=== PATIENT | male | born 1940 | race Caucasian/White ===

== ENCOUNTER 2016-10-09 13:30 | Observation (INO) | payer OTHER, MEDICARE ==
[2016-10-09] MEDS ORDERED: NS 1,000 ML IV ONE (13:45)
--- NOTE | 2016-10-09 13:45 | CPEKG ---
Heart Rate: 74 RR Interval: 811 P-R Interval: 204 QRSD Interval: 92 QT Interval: 388 QTC Interval: 431 P Orlando: 66 QRS Orlando: -22 T Wave Orlando: 50 EKG Severity - OTHERWISE NORMAL ECG - EKG Impression: SINUS RHYTHM EKG Impression: BORDERLINE LEFT AXIS DEVIATION Electronically Signed By: Robin Prado 09-Oct-2016 13:58:28
--- NOTE | 2016-10-09 13:50 | EDPHY ---
General Narrative: CHIEF COMPLAINT: Chest Pain HISTORY OF PRESENT ILLNESS: Patient complains of a left-sided chest discomfort or pressure. This has been present for greater than a week. This is primarily present night. Occasionally after exertion. Minimally painful to him. Occasionally radiates on the right side of the chest after bench pressing. No fever or chills. No diaphoresis. No nausea or vomiting. He does feel that he has been tiring more quickly lately. No shortness of breath. Does not have any lower extremity edema or pain, but he does have some erythematous changes of the shins over the past few weeks. No history of venous thrombolic event. No history of coronary artery disease or [place]. Pain did worsen this morning at the gym while exercising. The tingling and numbness of the left arm that he explained is chronic, at baseline, and he does not feel it has anything to do with the chest discomfort he describes. No other associated complaints or modifying factors. PRIOR CARDIAC WORKUP: Heart catheterization remotely REVIEW OF SYSTEMS: Ten systems reviewed and are negative unless otherwise noted in the HPI EXAMINATION: General Appearance: Alert, no distress Head: normocephalic, atraumatic Eyes: Pupils equal and round, no conjunctival pallor or injection. EOMs intact. ENT, Mouth: Mucous membranes moist. Uvula midline. No erythema or edema. Neck: Normal inspection, supple, non-tender Respiratory: Lungs are clear to auscultation. No wheezing, rhonchi or crackles. Cardiovascular: Regular rate and rhythm. No murmur. Pulses intact distally symmetrically. Gastrointestinal: Abdomen is soft and nontender Neurological: A&O, nonfocal, normal gait. Strength is symmetric Skin: Warm and dry. Petechial changes to the left anterior lopez. Also small area petechiae on the right anterior lopez. Extremities: Nontender, no pedal edema. No erythema. No discrepancy of circumference of the cast. No pain with passive dorsiflexion. No evidence of DVT. Psychiatric: Mood and affect normal DIFFERENTIAL DIAGNOSES: Including but not limited to in no particular order: Acute Chest Pain, ACS, Stable Angina, Pneumonia, PE, duodenitis, gastritis, esophagitis, GERD MDM: 1:50 p.m. Chest pain of greater than 12 hours duration. The pain did worsen this morning while exercising. The pain is not been constant and does wax and wane. No definite worsening with exertion every time, but does have some worsening with exertion this morning. Vital signs are stable. He is in no acute distress. 3:05 p.m. Laboratory studies are negative. Chest x-ray as read by me shows no acute findings. EKG is unremarkable with no ischemia. Vital signs remained stable. I have revision with the patient to find out specifically when the chest pain worsen, and this was just before 12:00 p.m. today. Given this scenario, I do feel he is best suited with acute coronary scenario rule out by observation admission. I discussed the case with Dr. Salinas, and she will admit the patient observation. Patient is comfortable that plan. At his request, I have also paged the cardiology office he was scheduled to see on Friday to discuss the case. 4:[address] Salinas that she had ordered a D-dimer due to the possibility of PE. This has just returned as negative. Also notified by Dr. Serrano that the DVT study of the left lower extremity does not reveal an acute DVT. There is note of a mixed attenuation fluid collection that is lateral to the hip on the left. I have notified Dr. Salinas of this. She will follow up on this EKG: Interpreted by Dr. Prado Normal sinus rhythm without acute ischemia. SUPERVISION: This patient was independently evaluated without direct examination by the attending physician. Case was discussed with attending physician. Case discussed with Dr. Prado - History Smoking Status: Never smoked - Objective Vital Signs: Initial Vital Signs Temperature (C) 97.5 F 10/09/16 13:33 Heart Rate 84 10/09/16 13:33 Respiratory Rate 18 10/09/16 13:33 Blood Pressure 140/74 H 10/09/16 13:33 O2 Sat (%) 95 10/09/16 13:33 O2 Delivery Mode Room Air Allergies/Adverse Reactions: No Known Allergies Allergy (Unverified 10/09/16 15:19) Home Medications: Medication Instructions Recorded Ascorbic Acid [Vitamin C 500 mg 2,000 - 4,000 mg PO DAILY 01/16/12 (OTC)] Atorvastatin Calcium [Lipitor 20 20 mg PO DAILY 01/16/12 mg (RX)] Calcium Carb W/Vit D [Calcium Carb 500 mg PO DAILY 01/16/12 W/Vit D 500 mg (OTC)] Cholecalciferol Vit D3 [Vitamin D3 2,000 units PO DAILY 01/16/12 1000 units (OTC)] Cyanocobalamin [Vitamin B12 1000 1,000 mcg PO DAILY 01/16/12 MCG (OTC)] Herbals/Supplements -Info Only 1 each PO DAILY 01/16/12 Multivitamins [Multivitamin (OTC)] 1 each PO DAILY 01/16/12 Niacin [Niacin 500 mg (OTC)] 500 mg PO DAILY 01/16/12 Aspirin [Aspirin 325 mg (*)] 168 mg PO HS 10/09/16 Glucosamine/Chondroitin 1 each PO DAILY 10/09/16 [Glucosamine/Chondroitin (*)] Laboratory Results: Laboratory Results 10/09/16 13:50 10/09/16 13:50 10/09/16 10/09/16 10/09/16 13:50 13:50 13:50 WBC 6.60 10^3/uL 10^3/uL (3.80-9.50) RBC 5.05 10^6/uL 10^6/uL (4.40-6.38) Hgb 15.4 g/dL g/dL (13.7-17.5) Hct 46.9 % % (40.0-51.0) MCV 92.9 fL fL (81.5-99.8) MCH 30.5 pg pg (27.9-34.1) MCHC 32.8 g/dL g/dL (32.4-36.7) RDW 12.9 % % (11.5-15.2) Plt Count 197 10^3/uL 10^3/uL (150-400) MPV 10.7 fL fL (8.7-11.7) Neut % (Auto) 71.8 % % (39.3-74.2) Lymph % (Auto) 13.8 % L % (15.0-45.0) [place] % (Auto) 8.8 % % (4.5-13.0) Eos % (Auto) 5.0 % % (0.6-7.6) Baso % (Auto) 0.3 % % (0.3-1.7) Nucleat RBC Rel Count 0.0 % % (0.0-0.2) Absolute Neuts (auto) 4.74 10^3/uL 10^3/uL (1.70-6.50) Absolute Lymphs (auto) 0.91 10^3/uL L 10^3/uL (1.00-3.00) Absolute Monos (auto) 0.58 10^3/uL 10^3/uL (0.30-0.80) Absolute Eos (auto) 0.33 10^3/uL 10^3/uL (0.03-0.40) Absolute Basos (auto) 0.02 10^3/uL 10^3/uL (0.02-0.10) Absolute Nucleated RBC 0.00 10^3/uL 10^3/uL (0-0.01) Immature Gran % 0.3 % % (0.0-1.1) Immature Gran # 0.02 10^3/uL 10^3/uL (0.00-0.10) PT 12.7 SEC SEC (12.0-15.0) INR 0.96 (0.83-1.16) APTT 28.4 SEC SEC (23.0-38.0) D-Dimer 0.44 ug/mLFEU ug/mLFEU (0.00-0.50) Sodium 143 mEq/L mEq/L (134-144) Potassium 4.2 mEq/L mEq/L (3.5-5.2) Chloride 107 mEq/L mEq/L (97-110) Carbon Dioxide 25 mEq/l mEq/l (22-31) Anion Gap 11 mEq/L mEq/L (8-16) BUN 22 mg/dL mg/dL (7-23) Creatinine 1.1 mg/dL mg/dL (0.7-1.3) Estimated GFR > 60 Glucose 84 mg/dL mg/dL (70-100) Calcium 9.8 mg/dL mg/dL (8.5-10.4) Iron 107.0 mcg/dL mcg/dL (49-199) TIBC 225 ug/dL L ug/dL (260-490) Iron Saturation 48 % % (20-55) Total Bilirubin 1.6 mg/dL H mg/dL (0.1-1.4) Conjugated Bilirubin 0.4 mg/dL mg/dL (0.0-0.5) Unconjugated Bilirubin 1.2 mg/dL H mg/dL (0.0-1.1) AST 38 IU/L IU/L (17-59) ALT 50 IU/L IU/L (21-72) Alkaline Phosphatase 80 IU/L IU/L (38-126) Troponin I < 0.012 ng/mL ng/mL (0-0.034) NT-Pro-B Natriuret Pep 60 pg/mL pg/mL (0-125) Total Protein 7.5 g/dL g/dL (6.3-8.2) Albumin 4.4 g/dL g/dL (3.5-5.0) Lipase 114.0 IU/L IU/L (23-300) TSH 0.850 uIU/mL uIU/mL (0.465-4.680) Medications Given: Discontinued Medications Sodium Chloride (Ns) 1,000 mls @ 0 mls/hr IV ONCE ONE PRN Reason: Wide Open Stop: 10/09/16 13:46 Last Admin: 10/09/16 14:06 Dose: 1,000 mls Departure - Departure Disposition: [facility] Inpatient Acute Clinical Impression: Acute chest pain Condition: Good Referrals: NONE *PRIMARY CARE P,. [Primary Care Provider] - As per Instructions
[2016-10-09 13:57] LABS: % IMMATURE GRANULYOCYTES 0.3 % (0.0-1.1); ABSOLUTE IMMATURE GRANULOCYTES 0.02 10^3/uL (0.00-0.10); ADD DIFF? NO; ADD MORPH? NO; ADD SCAN? NO; ATYPICAL LYMPHOCYTE FLAG 0 (0-99); FRAGMENT RBC FLAG 0 (0-99); HEMATOCRIT 46.9 % (40.0-51.0); HEMOGLOBIN 15.4 g/dL (13.7-17.5); LEFT SHIFT FLG 0 (0-99); LIPEMIA HEMOLYSIS FLAG 80 (0-99); MEAN CELL HEMOGLOBIN 30.5 pg (27.9-34.1); MEAN CELL HEMOGLOBIN CONCENTR. 32.8 g/dL (32.4-36.7); MEAN CELL VOLUME 92.9 fL (81.5-99.8); MEAN PLATELET VOLUME 10.7 fL (8.7-11.7); PLATELET CLUMPS FLAG 0 (0-99); PLATELET COUNT 197 10^3/uL (150-400); RED BLOOD CELL COUNT 5.05 10^6/uL (4.40-6.38); RED CELL DISTRIBUTION WIDTH 12.9 % (11.5-15.2)
[2016-10-09 14:11] LABS: ALANINE AMINOTRANSFERASE 50 IU/L (21-72); ALBUMIN 4.4 g/dL (3.5-5.0); ALKALINE PHOSPHATASE 80 IU/L (38-126); ANION GAP 11 mEq/L (8-16); ASPARTATE AMINOTRANSFERASE 38 IU/L (17-59); BILIRUBIN,TOTAL 1.6 mg/dL (0.1-1.4); BILIRUBIN-CONJUGATED 0.4 mg/dL (0.0-0.5); BILIRUBIN-UNCONJUGATED 1.2 mg/dL (0.0-1.1); CALCIUM 9.8 mg/dL (8.5-10.4); CARBON DIOXIDE 25 mEq/l (22-31); CHLORIDE 107 mEq/L (97-110); CREATININE 1.1 mg/dL (0.7-1.3); GLOMERULAR FILTRATION RATE > 60; GLUCOSE 84 mg/dL (70-100); POTASSIUM 4.2 mEq/L (3.5-5.2); SODIUM 143 mEq/L (134-144); TOTAL PROTEIN 7.5 g/dL (6.3-8.2)
[2016-10-09 14:13] LABS: INR 0.96 (0.83-1.16); PROTIME(PATIENT) 12.7 SEC (12.0-15.0)
[2016-10-09 14:14] LABS: APTT 28.4 SEC (23.0-38.0)
[2016-10-09 14:20] LABS: % SATURATION 48 % (20-55); TOTAL IRON BINDING CAPACITY 225 ug/dL (260-490)
[2016-10-09 14:23] LABS: TROPONIN I < 0.012 ng/mL (0-0.034)
--- NOTE | 2016-10-09 16:48 | GHP ---
[f rep st] HISTORY AND PHYSICAL DATE OF ADMISSION: 10/09/2016 CHIEF COMPLAINT: Chest discomfort, dyspnea. HISTORY OF PRESENT ILLNESS: The patient is a 75-year-old male with a history of hyperlipidemia who has presented with approximately 1 month of left-sided chest discomfort and achiness. It is substernal that radiates to his left shoulder. It occurs mainly at night, and often it wakes him. He has noticed that his left arm falls asleep with this discomfort. Of more concern to him is a dyspnea and decreased exercise tolerance over the past 3 months. He has noticed more fatigue. He is very active, going to the gym 2-3 times a week. 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 However, over the last few months , he has been more winded and fatigues more easily when doing these activities. He also reports taking more antacids recently. He does have acid reflux that is different from this chest discomfort. Over the last few days, he has also noted swelling in the left leg and no pain with a mild rash. Denies recent travel. No fevers, chills, or sweats. No cough. No sore throat. No nausea, vomiting, or diarrhea. REVIEW OF SYSTEMS: I completed a 10-point review of systems, negative except as noted in HPI. PAST MEDICAL HISTORY: Hyperlipidemia. Patient has recently been evaluated by his primary care doctor and was actually supposed to see Dr. Salazar at [facility] on Friday. PAST SURGICAL HISTORY: Left rotator cuff in February, KATY FAMILY HISTORY: Father at age 61 undergoing a CABG. SOCIAL HISTORY: Lives with his . 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 Lives in [place]. Denies to tobacco or illicit. He drinks alcohol, a glass of wine 2- 3 times a week. Exercises 2-3 times a week at gym, plays pickleball, works with his horses 4-5 times a week. MEDICATIONS: Aspirin 325 mg daily, glucosamine, vitamin B12, vitamin D3, calcium carbonate, vitamin D, Lipitor 20, vitamin C, niacin 500 mg daily, multivitamin, herbal supplements. ALLERGIES: No known drug allergies. PHYSICAL EXAM: VITAL SIGNS: Temperature 36.4, blood pressure 140/70, heart rate 80, respiration 18, 95% on room air. GENERAL: No acute distress. Sitting up in bed, smiling. HEENT: PERRLA. EOMI. Oropharynx clear. CARDIOVASCULAR: Regular rate and rhythm. No murmurs, gallops, or rubs. LUNGS : Clear to auscultation bilaterally. ABDOMEN: Soft, nontender, nondistended. Positive bowel sounds. GENITOURINARY: No suprapubic tenderness. MUSCULOSKELETAL: Left lower extremity more swollen than left with small petechiae. NEUROLOGIC: 2 through 12 intact. PSYCHIATRIC: Alert and oriented x3. LABORATORY DATA: WBC 6, hemoglobin 15, hematocrit 46, platelets 197. Coags within normal. Sodium 143, potassium 4.2, chloride 107, creatinine 1.1, glucose 84, calcium 9.8, total bilirubin 1.6. AST 38, ALT 50, iron 107, TIBC is 225. Unconjugated bilirubin is 1.2. Troponin less than 0.012. BNP is 60. Lipase 114. TSH 0.8. EKG was personally reviewed by me, normal sinus rhythm, ST flattening in aVL. Chest x-ray personally reviewed by me, normal expansion, no evidence of effusion or opacity. ASSESSMENT AND PLAN: 1. Atypical chest pain: Differential includes acute coronary syndrome versus pulmonary embolism versus infection. Initial troponin and EKG were negative for ischemia. Will repeat both these. Negative D-dimer. No evidence of infection. Patient is afebrile. Chest x-ray is clear. Will monitor in the EACU on telemetry. Provide p.r.n. morphine if needed. Exercise treadmill in morning. 2. Left lower extremity swelling: negative US for DVT. 3. Hyperlipidemia: Continue home medications. 4. Petechia: LLE. Unclear cause, small-vessel vasculitis? Unusual given one leg. Normal platelets. Check ESR, CRP, C3/C4, Hep serologies 5. Left hip effusion: seen on LE U/S. May be 2/2 to hardware, discussed with Dr. Pal. Will further eval with MRI 4. Diet: Cardiac. 5. Deep venous thrombosis prophylaxis: Low risk, ambulatory. DISPOSITION: Patient warrants observation admission given acute chest pain warranting serial troponin, EKG, and telemetry monitoring. /[id number]/MODL MTDD
[2016-10-09] MEDS ORDERED: MIDAZOLAM 2 MG/2 ML VIAL IVP PRN (16:59)
[2016-10-09 19:17] LABS: HEMATOCRIT 46.4 % (40.0-51.0)
[2016-10-09] MEDS ORDERED: ASPIRIN 325 MG TAB PO SCH (21:00)
[2016-10-10 06:06] LABS: ANION GAP 8 mEq/L (8-16); CALCIUM 9.3 mg/dL (8.5-10.4); CARBON DIOXIDE 23 mEq/l (22-31); CHLORIDE 108 mEq/L (97-110); CHOLESTEROL 159 mg/dL (140-220); CHOLESTEROL/HDL RATIO 3.24 RATIO (1.00-4.97); GLOMERULAR FILTRATION RATE > 60; GLUCOSE 86 mg/dL (70-100); HIGH DENSITY LIPOPROTEIN 49 mg/dL (40-65); LDL/HDL RATIO 1.76 RATIO (1.00-3.64); LOW DENSITY LIPOPROTEIN 86 mg/dL (80-100); NON-HIGH DENSITY LIPOPROTEIN 110 mg/dL (90-129); POTASSIUM 4.8 mEq/L (3.5-5.2); SODIUM 139 mEq/L (134-144); TRIGLYCERIDE 121 mg/dL (40-150); VERY LOW DENSITY LIPOPROTEINS 24 mg/dL (8-25)
--- NOTE | 2016-10-10 08:12 | CPEKG ---
Heart Rate: 65 RR Interval: 923 P-R Interval: 208 QRSD Interval: 94 QT Interval: 404 QTC Interval: 421 P Rock: 65 QRS Rock: -21 T Wave Rock: 38 EKG Severity - OTHERWISE NORMAL ECG - EKG Impression: SINUS RHYTHM EKG Impression: BORDERLINE LEFT AXIS DEVIATION Electronically Signed By: Caleb Robles 10-Oct-2016 09:05:20
[2016-10-10] MEDS ORDERED: ATORVASTATIN CALCIUM 20 MG TAB PO SCH (09:00)
[2016-10-10] MEDS ORDERED: GLUCOSAMINE/CHONDROITIN CAP PO SCH (09:00)
[2016-10-10] MEDS ORDERED: MULTIVITAMINS 1 EACH TAB PO SCH (09:00)
[2016-10-10] MEDS ORDERED: CYANO/VITAMIN B12 1000 MCG TAB PO SCH (09:00)
[2016-10-10] MEDS ORDERED: ASCORBIC ACID 500 MG TAB PO SCH (09:00)
[2016-10-10] MEDS ORDERED: NIACIN 500 MG TAB PO SCH (09:00)
[2016-10-10] MEDS ORDERED: CHOLECALCIFEROL VIT D3 2,000 UNITS TAB/CAP PO SCH (09:00)
[2016-10-10 09:18] VITALS: RESP 14
--- NOTE | 2016-10-10 11:35 | CPR ---
[f rep st] NONINVASIVE CARDIAC PROCEDURE REPORT PROCEDURE: Exercise treadmill test. INDICATION FOR PROCEDURE: Ongoing dyspnea on exertion, abnormal electrocardiogram, evaluation for cardiac ischemia. PRE: After obtaining informed consent, patient was placed on electrocardiogram. Initial EKG shows sinus rhythm with a first-degree AV block , no significant ST or T-wave abnormalities suggesting of an ischemia. Patient denies of any chest pain, shortness of breath, or symptoms suggesting of ischemia. Initial blood pressure of 130/82, saturation 94% on room air. STRESS: Patient was placed on exercise treadmill, following standard Surya protocol, the following findings: 1. Patient exercised 8 minutes and 30 seconds 2. 9.8 METs 3. The patient obtained a heart rate of 131 BPM which was 89% of MPHR. 4. The patient had no chest pain or symptoms suggesting of ischemia during exercise. 5. The patient had no significant ST changes suggesting of ischemia throughout testing. 6. BP response, patient's resting BP was 130/82, peak 198/80. 7. The patient was noted to have occasional premature ventricular contraction during stress, no other arrhythmias noted during any of the 3 stages. 8. Patient maintained SpO2 greater than 90%. 9. Test was stopped due to maximum effort. 10. Strickland treadmill score of 8, placing patient at low cardiovascular risk. RECOVERY: Patient recovered for 5 minutes. Within that time, his heart rate returned back to baseline at 70 beats per minute. Final blood pressure 142/80. Patient remained symptom free. IMPRESSION: A 75-year-old male being evaluated for cardiac ischemia for ongoing shortness of breath. No significant EKG changes at peak exercise suggesting of ischemia. Strickland treadmill score of 8. Stress test negative for ischemia. Patient at low cardiovascular risk. Results and findings called to [facility]. /[id number]/MODL MTDD
[2016-10-10] MEDS ORDERED: GADOBUTROL 10 ML VIAL IVP ONE (12:17)
[2016-10-10] MEDS ORDERED: MIDAZOLAM 2 MG/2 ML VIAL ONE ×2 (12:37→13:23)
[2016-10-10 14:41] VITALS: BP 128/86; PULSE 62; TEMP 97.5; O2SAT 97
--- NOTE | 2016-10-10 15:13 | PDDCSUM ---
Discharge Summary Discharge Summary: DISCHARGE SUMMARY FOLLOW-UP ITEMS: Outpatient orthopedic consultation, outpatient rheumatology consultation, outpatient echocardiogram DATE OF ADMISSION: 10/09/2016 DATE OF DISCHARGE: 10/10/2016 DISCHARGE DIAGNOSES: 1. Dyspnea on exertion 2. Left hip effusion 3. 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 Dyspnea on exertion. Unclear etiology, ruled out for acute coronary syndrome with negative troponin x2, no ischemic changes on EKG, no obstructive coronary disease noted on exercise stress testing, negative D-dimer, no abnormalities on chest x-ray. Patient also underwent a TSH screening which was normal and his inflammatory markers were also fairly unremarkable. Although we currently do not have a unifying diagnosis of his dyspnea as well as his hip findings, the patient has follow up with his primary care provider tomorrow and will most likely have an echocardiogram in the office to ensure he does not have a reduced ejection fraction. Otherwise, patient has had all other potentially immediately dangerous etiologies ruled out. 2. Left hip effusion. Patient had an incidental left hip effusion noted on lower extremity ultrasound under taken to rule out DVT. 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 It is unclear whether this is related to his left lower extremity unilateral petechiae. As noted above, patient's sed rate was normal his CRP was marginally elevated and complement levels were pending at time of discharge. His CBC was otherwise normal and he does not appear to have an infection. Consequently, I would recommend that he follow up with an orthopedist and he will be provided with his images further review. 3. Petechiae. Unilateral, if patient does not accomplish unifying diagnosis for the conditions outlined above, I have encouraged him to follow up with an outpatient freight car inspector thereafter. DISCHARGE MEDICATIONS: Please see official discharge medication reconciliation sheet in chart , no medication changes. DISCHARGE INSTRUCTIONS: Patient will follow up with Dr. Vanegas tomorrow, orthopedics thereafter, potentially Rheumatology thereafter.
[2016-10-10 16:03] LABS: HEPATITIS Bs Ab QUANT <5.0 mIU/mL
[2016-10-10 18:10] LABS: C3 COMPLEMENT COMPONENT 139 mg/dL (75 - 175); C4 COMPLEMENT COMPONENT 22 mg/dL (14 - 40)
== END 2016-10-10 16:24 | disposition home or self-care (01) ==
LOC: F1N 16:54
PROVIDERS: ADMIT Internal Medicine; ATTEND Internal Medicine
DX: R07.89 Other chest pain (principal); R06.00 Dyspnea, unspecified; E78.5 Hyperlipidemia, unspecified; R23.3 Spontaneous ecchymoses; R60.0 Localized edema; M25.452 Effusion, left hip
CPT/HCPCS: 71020; 73723; 93005; 93017; 93971; 96360; 99285; A9585; G0378; J2250; G0472

== ENCOUNTER → 2016-10-18 | Outpatient (CLI) | payer OTHER, MEDICARE ==
[~2016-10-18] MED LIST: IOPAMIDOL (ISOVUE-300) 100 ML BTL IV ONE
== END ==
LOC: FIMAGING 10:35
DX: R60.9 Edema, unspecified (principal); R07.9 Chest pain, unspecified; R06.02 Shortness of breath; M25.452 Effusion, left hip; I87.1 Compression of vein; R91.8 Other nonspecific abnormal finding of lung field; R93.49 Abnormal radiologic findings on diagnostic imaging of other urinary organs; R93.8 Abnormal findings on diagnostic imaging of other specified body structures
CPT/HCPCS: 74177; Q9967

== ENCOUNTER → 2016-10-21 | Outpatient (CLI) | payer OTHER, MEDICARE | LOC: BHFA 08:30 | PROVIDERS: ATTEND Internal Medicine Cardiovascular Disease | DX: R06.00 Dyspnea, unspecified (principal); R06.02 Shortness of breath; R07.9 Chest pain, unspecified | CPT/HCPCS: 78452; 93017; 93306; A9500 ==

== ENCOUNTER 2018-05-18 14:04 | Outpatient (CLI) | payer OTHER, MEDICARE ==
[2018-05-18] MEDS ORDERED: NALOXONE HCL 0.4 MG/ML INJ IVP PRN (15:19)
[2018-05-18] MEDS ORDERED: MIDAZOLAM 2 MG/2 ML VIAL IVP PRN (15:19)
[2018-05-18] MEDS ORDERED: fentaNYL 100 MCG/2 ML INJ IVP PRN (15:19)
[2018-05-18] MEDS ORDERED: FLUMAZENIL 0.5 MG/5 ML MDV IVP PRN (15:19)
[2018-05-18] MEDS ORDERED: NS 1,000 ML IV SCH (15:30)
[2018-05-18] MEDS ORDERED: ONDANSETRON 4 MG/2 ML VIAL IVP ONE (16:07)
[2018-05-18] MEDS ORDERED: ONDANSETRON 4 MG/2 ML VIAL ONE (16:11)
[2018-05-18] MEDS ORDERED: ACETAMINOPHEN 325 MG TAB PO PRN (17:30)
[2018-05-18] MEDS ORDERED: ONDANSETRON 4 MG/2 ML VIAL IVP PRN (17:30)
--- NOTE | 2018-05-18 17:31 | PDPROPOC ---
Sedation Plan of Care Sedation Plan of Care: vital signs stable, mental status noted, patient educated of risks, benefits, alternatives, patient can tolerate sedation ASA Classification: ASA 1 Planned drugs: fentanyl, midazolam Mallampati Score: Class 1 Mallampati Reference Image: Patient passed 3-3-2 rule?: Yes
[2018-05-18 18:00] VITALS: BP 120/81
== END 2018-05-18 18:06 | disposition home or self-care (01) ==
LOC: FIMAGING 14:04
PROVIDERS: ATTEND Neurological Surgery
DX: M41.26 Other idiopathic scoliosis, lumbar region (principal); M51.36 Other intervertebral disc degeneration, lumbar region
CPT/HCPCS: 72148; J2250; J2405; J3010; J2310